=== PATIENT | female | born 1960 | race Caucasian/White ===

== ENCOUNTER → 2024-12-28 19:29 | Emergency (ER) | payer OTHER, SELFPAY ==
[2024-12-28 19:38] VITALS: BP 151/83
--- NOTE | 2024-12-28 23:45 | ED.GENMED ---
History of Present Illness
General
Chief Complaint: Musculo-Skeletal Complaint
Source: patient
Exam Limitations: none
Time Seen by Provider: 12/28/24 23:44
Nursing documentation reviewed up to this point in time: agreed with
History of Present Illness
History of Present Illness:
This is a 64-year-old female with no past medical history presents to the emergency department today with concerns of swelling in her left leg. Patient reports that she has had on and off pain in both of her knees and both of her hips in the past
few weeks. She was diagnosed with osteoarthritis by her primary care provider. Patient reports that she is active and she goes on long walks multiple times a day. Patient reports that when she was going on a walk earlier today, she noticed that
her left knee started to hurt and felt heavy. She looked down and noticed that her knee, leg, and ankle appeared swollen. Patient denies any hormonal therapies, she denies any chest pain or shortness of breath. She denies any recent long distance
travel in a car or plane. Patient does not take any blood thinners. She is also concerned about her knee pain because she reports that she has been picking ticks off of her dog. Currently, she denies any hip pain denies any difficulty ambulating
but does note some pain in her left knee and swelling in her lower leg.
Review of Systems
Review of Systems
All Other Systems: ROS reviewed and negative except as documented in HPI and ROS
Phy Exam
Physical Exam
Physical Exam:
General: Patient is well appearing and in no acute distress; non-toxic
Skin: Mild erythema noted to left lower medial leg
Head: Normocephalic, atraumatic
Eyes: Sclera non-icteric. EOMs intact.
Cardiac: Regular rate and rhythm, no murmurs
Peripheral Vascular: Asymmetric lower extremity swelling noted in the left lower leg extending from the dorsum of the foot to the knee. 2+ dorsalis pedis pulses bilaterally
Pulm: Normal respiratory effort
Musculoskeletal: No bony tenderness to palpation noted at the left knee joint. Full range of motion of bilateral lower extremities. Some knee pain with left knee flexion.
Neuro: CN II-XII intact, no focal neurologic deficits. Sensation intact.
Psychiatric: Appropriate mood and affect.
Course
Orders/Labs/Results
Orders:
Orders
12/28/24 23:54
Complete Blood Count/With Diff Urgent
Comprehensive Metabolic Panel Urgent
Lyme Progressive Urgent
12/29/24 00:00
CR Knee - Left 4 Or More View* Urgent
Reason For Exam: left knee pain
12/29/24 00:01
US Periph Venous LOWER Ext LT Urgent
Reason For Exam: left calf swelling and pain
12/29/24 02:03
Knee Immobilizer Left-Treatmen ONCE
12/29/24 06:02
Diphenhydramine [Benadryl] 50 mg IV NOW STA
Hydrocortisone Sod Succinate [Solu-Cortef] 200 mg IV NOW STA
Abnormal Lab Results
12/29/24
00:22
MCH 33.8 H pg
(27.0-31.0)
MPV 11.5 H fL
(7.4-10.4)
Eosinophils % 10.9 H %
(0-6)
Sodium 146 H mmol/L
(135-145)
Chloride 113 H mmol/L
(98-107)
Glucose 104 H mg/dl
(70-99)
12/29/24 00:22
12/29/24 00:22
Vital Signs
Initial and Last Documented VS:
Initial Vital Signs
Temp Pulse Resp BP Pulse Ox
97.7 F 72 18 151/83 96
12/28/24 19:38 12/28/24 19:38 12/28/24 19:38 12/28/24 19:38 12/28/24 19:38
Last Documented Vital Signs
Temp Pulse Resp BP Pulse Ox
97.7 F 67 18 165/90 98
12/28/24 19:38 12/29/24 02:29 12/29/24 02:29 12/29/24 02:29 12/29/24 02:29
MDM/Problems Addressed
Differential Diagnosis Includes:
Differentials include DVT, cellulitis, osteoarthritis, prepatellar bursitis
MDM/Problems Addressed:
This is a 64-year-old female with no past medical history presents to the emergency department today with concerns of swelling in her left leg. Patient reports that she has had on and off pain in both of her knees and both of her hips in the past
few weeks. She than noticed that her left knee started to hurt her more and she noticed swelling going down her leg into the base of her foot. She reports that she has been walking much more frequently recently however does not recall an inciting
injury. On exam there is some mild erythema noted to the left lower anterior leg with warmth noted. She has intact distal pulses. Her ultrasound was negative for DVT however did show medial knee fluid collection. Reviewed case with my attending.
This may represent a meniscal injury vs developing cellulitis. Will provide knee immobilizer for support and cover patient with antibiotics. Patient stable for discharge. Discussed Ortho follow-up.
*Pulse Oximetry
Patient hypoxic: no
*Critical Care Note
Total Time (30-74mins, 75-104mins- exclusive of procedures): Not Applicable
Data Reviewed
Review of Other/Old Records Reveals: Records (No previous ER physician documentation to review no discharge summaries to review)
Source: patient and records
ED Attending Note
-
Portions of this chart may have been created with voice recognition software.� Occasional wrong word or��sound alike� substitutions may have occurred due to the inherent limitations of voice recognition software.
Discharge Plan
Departure
Patient Disposition: Home (Routine Discharge)
Date of Disposition: 12/29/24
Time of Disposition: 02:31
Patient with high blood pressure during this ER visit?: Yes
Condition: Good
Discharge Problem:
Left leg swelling, Acute knee pain
Instructions: Swelling, Knee pain, BLOOD PRESSURE
Prescriptions:
New
cephalexin 500 mg capsule
500 mg PO QID 7 Days Qty: 28 0RF
Referrals:
NONE,* [Family Provider] -
Activity Restrictions/Additional Instructions:
Your ultrasound was negative for blood clot. Ultrasound did show fluid collection in the medial knee. This may be from a meniscal injury. Keflex has been sent to your pharmacy to cover for cellulitis.
You keep the knee elevated at home. You can apply ice to the area.
PLEASE RETURN EMERGENCY DEPARTMENT IF YOU DEVELOP INABILITY TO AMBULATE, LOSS OF SENSATION IN YOUR LEG, LIGHTHEADEDNESS, DIZZINESS, PALLOR, FEVERS OR CHILLS, SPREADING OF THE REDNESS, OR ANY OTHER SIGNS OR SYMPTOMS WORRISOME TO YOU.
Interventions
Interventions:
*Risk Screen - Suicide Last Done: 12/28/24 19:42
*General Assessment Last Done: 12/28/24 19:42
*Neglect/Abuse Screening Last Done: 12/28/24 19:42
*ED COVID-19 Vaccine History Last Done: 12/28/24 19:42
ED-Musculoskeletal Assessment Last Done: 12/28/24 23:47
Discharge Date and Time
Print Language: CHINESE
[2024-12-29 00:37] LABS: % Basophils 0.3 % (0-2); % Eosinophils 10.9 % (0-6); % Immature Granulocytes 0.3 % (0-0.5); % Lymphocytes 20.9 % (20.5-51.1); % Monocytes 7.5 % (1.7-9.3); % Neutrophils 60.1 % (42.2-75.2); Absolute Eosinophils 0.7 10^3/uL (0-0.7); Absolute Lymphocytes 1.3 10^3/uL (1.2-3.4); Absolute Monocytes 0.5 10^3/uL (0.1-0.6); Absolute Neutrophils 3.7 10^3/uL (1.4-6.5); Hematocrit 42.4 % (37.0-47.0); Hemoglobin 14.5 g/dL (12.0-16.0); Mean Corp Hgb Conc. 34.2 g/dL (33.0-37.0); Mean Corpuscular Hgb 33.8 pg (27.0-31.0); Mean Corpuscular Volume 98.8 fL (81.0-99.0); Mean Platelet Volume 11.5 fL (7.4-10.4); Nucleated Red Blood Cells % 0 %; Platelet Count 145 10^3/uL (130-400); Red Blood Cell Count 4.29 10^6/uL (4.20-5.40); Red Cell Dist. Width 12.7 % (11.5-14.5); White Blood Cell Count 6.2 10^3/uL (4.8-10.8)
[2024-12-29 00:55] LABS: ALT (SGPT) 20 U/L (0-35); AST (SGOT) 21 U/L (14-36); Albumin 4.7 g/dl (3.5-5.0); Alkaline Phosphatase 74 U/L (38-126); Blood Urea Nitrogen 16 mg/dl (7-17); Calcium 9.5 mg/dl (8.4-10.2); Carbon Dioxide 25 mmol/L (22-30); Chloride 113 mmol/L (98-107); Glucose 104 mg/dl (70-99); Potassium 3.9 mmol/L (3.5-5.1); Sodium 146 mmol/L (135-145); Total Bilirubin 0.5 mg/dl (0.2-1.3); Total Protein 7.3 g/dl (6.3-8.2); eGFR > 60.00
[2024-12-29 02:29] VITALS: BP 165/90
[2024-12-30 13:11] LABS: Lyme Antibody Screen, EIA Negative (Negative)
== END | disposition home or self-care (01) ==
LOC: EMR 19:29
PROVIDERS: Physician Assistant; EMERGENCY PHYSICIAN Student in an Organized Health Care Education/Training Program
DX: R22.42 Localized swelling, mass and lump, left lower limb (principal); M25.562 Pain in left knee; R03.0 Elevated blood-pressure reading, without diagnosis of hypertension
CPT/HCPCS: 99285; 29505; 73564; 80053; 85025; 86618; 93971